=== PATIENT | male | born 2000 | race Caucasian/White ===

== ENCOUNTER 2020-12-12 01:30 | Emergency (ER) | payer OTHER, SELFPAY ==
[2020-12-12 01:31] VITALS: BP 138/75; PULSE 118; RESP 20; TEMP 37.2; O2SAT 94; BMI 26.6
[2020-12-12] MEDS: MethylPREDNISolone 125 MG/2 ML Vial 80 MG IV (02:17)
--- NOTE | 2020-12-12 02:25 | EDS_ITS ---
HPI History of Present Illness Chief Complaint: Allergic Reaction Informant: patient Onset/Context/Timing Onset: Today Context: Sudden Onset Timing: Continuous Quality: Swelling Location: Throat Worsened by: Swallowing Relieved by: Nothing Narrative Narrative: Patient presents with allergic reaction that began today. Patient states it began rather suddenly. Patient denies any new soaps, shampoos, laundry detergents, fabric softeners, or other new exposures. Patient states he felt like his throat was swelling. Patient states he felt like he was having some difficulty swallowing. Patient also noted hives throughout his body. Patient states nothing makes his symptoms better or worse. Patient does admit to a mild cough and some slight shortness of breath. [facility] Medical History (Updated 12/12/20 @ 04:[address] Enoc Thomas DO) Esophagitis, eosinophilic Home Medications fluticasone propionate [Flovent] 2 puff INHALATION BID 12/12/20 [History Last Taken Unknown] prednisone 60 mg PO DAILY #15 tablet 12/12/20 [Rx Last Taken Unknown] Allergy/AdvReac Type Severity Reaction Status Date / Time No Known Allergies Allergy Verified 12/12/20 01:34 no surgical history Social History Smoking Status: Never smoker ROS ROS ED Constitutional Constitutional ED: Denies chills or fever(s) Eyes Eyes: Denies blurry vision or change in vision ENT ENT ED: Denies rhinorrhea or sore throat Cardiovascular Cardiovascular: Denies chest pain or palpitations Respiratory/Chest Respiratory/Chest: Reports cough and dyspnea Gastrointestinal Gastrointestinal: Denies nausea or vomiting Genitourinary Genitourinary ED: Denies dysuria or hematuria Musculoskeletal Musculoskeletal: Denies back pain or neck pain Integumentary Reports rash; Denies abscess Neurologic Neurologic: Denies headache(s) or weakness Allergic/Immunologic Allergic/Immunologic ED: Reports urticaria; Denies mouth swelling or tongue swelling EXAM Physical Exam Const Vital Signs: 12/12/20 01:31 12/12/20 03:02 12/12/20 04:00 Temperature 98.9 F Temperature Source Temporal Pulse Rate 118 H 63 58 L Respiratory Rate 20 H 21 H 20 H Blood Pressure 138/75 H 127/56 H 137/68 H Blood Pressure Mean 96 79 91 Pulse Ox 94 96 95 Oxygen Delivery Method Room Air Room Air Room Air Positive well nourished and well developed General Appearance ED: well developed HEENT Reports moist mucous membranes HEENT Narrative: Oropharynx is clear. Airway is patent. Neck supple and no JVD Resp normal respiratory effort and clear to auscultation bilaterally Cardio regular rate, regular rhythm and no murmurs GI normal to inspection, nondistended, normoactive bowel sounds and non-tender Palpation: soft Extremity normal to inspection General Extremety ED: Negative for edema or tenderness General Extremity: Negative for edema Neuro oriented x3, CN's II-XII intact bilaterally and no sensory deficits noted Sensorium / Orientation: alert Motor Exam: strength 5/5 throughout Psych mental status grossly normal Skin Rashes: rashes noted Generalized patch erythematous hives MDM MDM MDM Narrative Medical decision making narrative: Patient was given a dose of Solu-Medrol here. Patient was feeling better on reevaluation. Patient's urticaria was improved. Patient was given a prescription for prednisone. Patient was instructed to take Benadryl as needed for any itching. Patient was instructed to follow-up with his primary care physician in 5 to 7 days. Patient understood and was agreeable with the plan. All questions were answered. Discharge Plan Triage Chief Complaint: Allergic Reaction ED Provider: Enoc Thomas Dx/Rx/DC Orders Clinical Impression: Allergic reaction Instructions: ED General Allergic Reactions Prescriptions: New prednisone 20 MG tablet 60 mg PO DAILY Qty: 15 RF: 0 No Action Flovent 44 mcg/actuation Hfa Aerosol Inhaler 2 puff INHALATION BID RF: 0 Referrals: SALVADOR PEARSON [Other] - 3-5 Days Disposition Disposition: Home, Self Care
[2020-12-12 03:02] VITALS: BP 127/56; PULSE 63; RESP 21; O2SAT 96
[2020-12-12 04:00] VITALS: BP 137/68; PULSE 58; RESP 20; O2SAT 95
[2020-12-12 04:35] VITALS: BP 131/57; PULSE 61; RESP 18; O2SAT 97
== END 2020-12-12 04:42 | disposition home or self-care (01) ==
PROVIDERS: Emergency Provider Emergency Medicine
DX: L50.0 Allergic urticaria (principal)
CPT/HCPCS: 96374; 99284; A4216